=== PATIENT | male | born 1950 | race Caucasian/White ===

== ENCOUNTER 2023-03-23 09:46 | Day surgery (SDC) | payer MEDICARE, SELFPAY ==
[2023-03-17 13:24] VITALS: BMI 26.8
--- NOTE | 2023-03-18 08:20 | HO.ANESPROP2 ---
Documented by User: Melani Cardona NP 03/18/23 08:20 HPI - Anesthesia Eval Consult details Narrative: 72yo M for Colonoscopy [facility] Past Medical History Medical History Lyme disease HTN (hypertension) Surgical History Surgical History H/O colonoscopy Social History Patient Tobacco Use Status: Never used Tobacco Are you DNR?: No Advance Directives: No Advance Directives Information Provided: Yes Nutrition Risks: No Nutritional Risk Meds Allergies Allergy/AdvReac Type Severity Reaction Status Date / Time penicillamine Allergy Unknown Unknown Verified 03/23/23 09:58 Sulfa (Sulfonamide Allergy Unknown Unknown Verified 03/23/23 09:58 Antibiotics) Home Medications Medication Instructions Recorded Confirmed Last Taken Type amlodipine 5 mg tablet 5 mg PO DAILY 03/17/23 03/17/23 03/23/23 History Exam Height,Weight and Vital Signs: Height 5 ft 8.5 in Weight 81.193 kg Assessment and Plan Assessment Anesthesia Assessment: Chart Reviewed Documented by User: Solitario Chan MD 03/23/23 10:21 [facility] Past Medical History Medical History Lyme disease HTN (hypertension) Family History Family history of problems with anesthesia: No Surgical History Surgical History H/O colonoscopy History of Problems with Anesthesia: No Social History Patient Tobacco Use Status: Never used Tobacco Are you DNR?: No Advance Directives: No Advance Directives Information Provided: Yes Nutrition Risks: No Nutritional Risk Meds Allergies Allergy/AdvReac Type Severity Reaction Status Date / Time penicillamine Allergy Unknown Unknown Verified 03/23/23 09:58 Sulfa (Sulfonamide Allergy Unknown Unknown Verified 03/23/23 09:58 Antibiotics) Home Medications Medication Instructions Recorded Confirmed Last Taken Type amlodipine 5 mg tablet 5 mg PO DAILY 03/17/23 03/17/23 03/23/23 History Exam Airway Mallampati Class: II TM Dist: >3cm Neck ROM: Full Loose/Missing/Broken Teeth: Yes (poor dentition, missing and chipped teeth globally.) Heart: [id number] Lungs: cta b/l Assessment and Plan Assessment Anesthesia Assessment: Anesthesia Plan Discussed Final Anesthetic Review Family History of Problems with Anesthesia: No History of Problems with Anesthesia: No NPO: Yes ASA Class: II Final Preanesthetic Review: No Changes in Pt Med Stat, Meds/Allgs Chart Reviewed, Consent Obtained/Reviewed and Anes Risks/Benef Reviewed Patient Risk: Intermediate Procedure Risk: Intermediate Assessment/Block/Sedation in SS: Assess/Block/Sedation-SS Anesthetic Plan Anesthetic Plan: MAC: and Agree w/ Assess. and Plan Disposition: Standard PACU
[2023-03-23] MEDS: Lactated Ringers 1,000 ML 100 ML IVCONT (10:02)
[2023-03-23 10:04] VITALS: BP 138/65; PULSE 60; RESP 18; TEMP 36.6; O2SAT 95
[2023-03-23 11:11] VITALS: BP 105/59; PULSE 54; RESP 16; TEMP 36.1; O2SAT 96
--- NOTE | 2023-03-23 11:12 | P.BOP_ITS ---
Brief Operative Note Date of Service: 03/23/23 Pre-op diagnosis: Screening Post-op diagnosis: other (Colon polyp) Procedure: Colonoscopy to the cecum and TI with biopsy/removal of polyp Surgeon: Mu Marion MD Anesthesia: MAC Was an Job Placement Specialist used for this Procedure?: No Estimated blood loss (mL): 2.0 Pathology: other (A. Transverse colon polyp) Condition: stable Disposition: PACU
[2023-03-23 11:26] VITALS: BP 133/73; PULSE 57; RESP 16; TEMP 36.3; O2SAT 96
--- NOTE | 2023-03-23 11:43 | OP_ITS ---
DATE OF SERVICE: 03/23/2023 SURGEON: Mu Marion MD INDICATIONS: The patient presents for evaluation of personal history of tubular adenoma of the colon and colorectal cancer screening. Full consent has been obtained from him for this, including risks of bleeding and perforation. PREOPERATIVE DIAGNOSIS: POSTOPERATIVE DIAGNOSIS: Colorectal cancer screening and personal history of tubular adenoma of the colon, small colon polyp, diverticulosis, and internal hemorrhoids. PROCEDURE PERFORMED: Colonoscopy to the cecum with biopsy and removal of polyp. ESTIMATED BLOOD LOSS: COMPLICATIONS: ANESTHESIA: Monitored anesthesia care. ASSISTANTS: SPECIMENS: PREOPERATIVE DIAGNOSES: Colorectal cancer screening and personal history of tubular adenoma of the colon. DESCRIPTION OF PROCEDURE: The patient was placed in the left lateral decubitus position. The digital rectal exam revealed no abnormalities. The Olympus video pediatric colonoscope was entered into the rectum, advanced easily to the cecum. Once in the cecum, I did identify normal-appearing cecal pouch with appendiceal orifice and a normal-appearing ileocecal valve. The entire cecum and ileocecal valve appeared normal. The scope was slowly withdrawn assessing all mucosal surfaces carefully. Preparation was excellent. There was transillumination of light deep in the right lower quadrant. In the transverse colon was a flat, approximately 3 mm polyp, which was biopsied and completely removed with a cold biopsy forceps. At 50 cm was a fairly large lipoma with overlying normal mucosa. It was quite soft, consistent with a lipoma. There were no mucosal abnormalities and biopsies were not obtained. There was a moderate amount of sigmoid diverticulosis. In the rectum, scope was retroflexed visualizing internal hemorrhoids, but no other pathology. The rectal mucosa appeared normal. The scope was straightened and withdrawn from the patient. He tolerated the procedure well and was returned to the recovery area in stable condition. IMPRESSION: 1. Small colon polyp. 2. Lipoma of colon. 3. Diverticulosis. 4. Internal hemorrhoids. PLAN: The results of the biopsies will be checked. I would recommend a repeat colonoscopy in 5 years for further screening and surveillance depending upon his clinical status at that point. He will otherwise see me on a p.r.n. basis. This has been discussed with his . MD BERNICE Ramirez/ALEX / [id number]
== END 2023-03-23 12:40 | disposition home or self-care (01) ==
PROVIDERS: PCP Nurse Practitioner Family; Visit Provider Internal Medicine
PROC: 0DJD8ZZ Inspection of Lower Intestinal Tract, Via Natural or Artificial Opening Endoscopic (ICD-10-PCS; CPT 45378; principal; 2023-03-23 10:50)
DX: Z12.11 Encounter for screening for malignant neoplasm of colon (principal); Z86.010 Personal history of colon polyps; D12.3 Benign neoplasm of transverse colon; D17.5 Benign lipomatous neoplasm of intra-abdominal organs; K57.30 Diverticulosis of large intestine without perforation or abscess without bleeding; K64.8 Other hemorrhoids; I10 Essential (primary) hypertension; A69.20 Lyme disease, unspecified; Z79.899 Other long term (current) drug therapy; Z88.0 Allergy status to penicillin; Z88.2 Allergy status to sulfonamides
CPT/HCPCS: 45380; 88305; J2704